=== PATIENT | female | born 1955 | race Caucasian/White ===

== ENCOUNTER → 2020-05-05 | Outpatient (CLI) | payer BC ==
--- NOTE | 2020-05-05 17:21 | CARDNUC ---
[place] [address] CARDIAC NUCLEAR IMAGING REPORT Name: DANNA KAPADIA Room: [facility]#: [id number] Admission: 05/05/20 Attend Phys: Cade Salcedo, Discharge: Date of : 59 Date of Service: 05/05/20 1721 Report #: [id number] THIS REPORT FOR: cc: Arpan Kramer Brad DO Liston, Michael J. MD [facility] ~ APPROVED REPORT Study performed: 05/05/2020 14:27:21 Exam: Nuclear Stress Test Indication: Abnormal EKG Patient Location: Out-Patient Stress Tech: Lizbeth Hood Stress Nurse: Vira Trujillo RN Ht: 5 ft 11 in Wt: 172 lbs BSA: 1.98 m2 BMI: 23.98 Medical History Medical History: CAD s/p [place], HTN, Hyperlipidemia Medications: lisinopril, amlodipine, atenolol, clonidine, atorvastatin Allergies: No known drug allergies Cardiac Risk Factors: Age, Current Smoker, HTN, Hyperlipidemia Exercise History: Physically active Meds Held (24 hrs): atenolol Stress Test Details Stress Test: Pharmacologic stress testing performed using 0.4 mg of regadenoson per 5 mL given IV over 10 seconds. Reason for pharmacologic stress test: st depression. HR Resting HR: 74 bpm Max Heart Rate (APMHR): 158 bpm Max HR Achieved: 103 bpm Target HR (85% APMHR): 134 bpm % of APMHR: 65 Recovery HR: 90 bpm BP Resting BP: 118/90 mmHg Max BP: 153/[address] [address] CARDIAC NUCLEAR IMAGING REPORT Name: DANNA KAPADIA Room: [facility]#: [id number] Admission: 05/05/20 Attend Phys: Cade Salcedo, Discharge: Date of : 59 Date of Service: 05/05/20 1721 Report #: [id number] Resting ECG: Sinus Rhythm, LVH with repolarization changes Stress ECG: Sinus Rhythm, LVH with repolarization changes ST Change: None Arrhythmia: None Recovery ECG: Sinus Rhythm, LVH with repolarization changes Recovery ST Change: None Recovery Arrhythmia: None Clinical Reason for Termination: Completed protocol The patient tolerated Lexiscan infusion without significant cardiac symptoms. Nurse Comments pt had sinificant st depression in inferior leads and lateral leads. dr Tomlinson consulted and he visited the patient. ok to do test as lexiscan Stress ECG Conclusion The baseline twelve-lead EKG shows sinus rhythm. There is left ventricular hypertrophy with repolarization abnormalities noted. EKGs obtained during and post Lexiscan infusion showed sinus rhythm with continued hypertrophy and repolarization abnormalities noted. No significant changes were noted. There were no stress-induced arrhythmias. NM EXAM: Myocardial Perfusion REST/STRESS Resting Data Rest SPECT myocardial perfusion imaging was performed in supine position 30 minutes following the intravenous injection of 10.3 mCi of Tc-99m Sestamibi. Time of rest injection: 12:50 The images were gated to evaluate regional wall motion and calculate left ventricular ejection fraction. Administration Route: IV Administration Site: Right Arm Pharmacologic Stress Pharmacologic stress test was performed by injecting Regadenoson 0.4 mg IV push followed by the intravenous injection of 32.6 mCi of Tc-99m [place] [address] CARDIAC NUCLEAR IMAGING REPORT Name: DANNA KAPADIA Room: [facility]#: [id number] Admission: 05/05/20 Attend Phys: PremSarah Salcedo, Discharge: Date of : 59 Date of Service: 05/05/20 1721 Report #: [id number] Time of stress injection: 14:25 Administration Route: IV Administration Site: Right Arm Heart Rate at time of stress injection: 103 bpm. Gated Stress SPECT was performed 45 minutes after stress injection. The images were gated to evaluate regional wall motion and calculate left ventricular ejection fraction. Prone imaging was performed. Study Quality Study: Good Artifact: Mild Soft tissue attenuation artifact Perfusion Perfusion images obtained at rest and post Lexiscan stress in the supine position show mild photopenia in the inferoapical wall that resolves for the most part with post-rest prone imaging. No other significant fixed or reversible defects are identified. Wall Motion Normal left ventricular wall motion. Nuclear Conclusion ECG Findings: non-diagnostic Clinical Findings: negative for ischemia Nuclear Findings: negative for ischemia Exercise Capacity: not assessed Left Ventricular Function: normal Risk Study: low Perfusion study show no defect that suggests infarct or ischemia. Left ventricular systolic function appears normal on gated studies. This is a low risk study. <Conclusion> The baseline twelve-lead EKG shows sinus rhythm. There is left ventricular hypertrophy with repolarization abnormalities noted. EKGs obtained during and post Lexiscan infusion showed sinus rhythm with continued hypertrophy and repolarization abnormalities noted. No significant changes were noted. There were no stress-induced arrhythmias. <ELECTRONICALLY SIGNED> By: Jorge Burgos MD, FACC 05/05/201720 20 20 Jorge Burgos MD, FACC /INF
== END ==
LOC: M.NUC 12:28 → M.CRD 13:00 → M.NUC 13:00
PROVIDERS: ATTEND Internal Medicine
DX: R94.31 Abnormal electrocardiogram [ECG] [EKG] (principal); I10 Essential (primary) hypertension; E78.2 Mixed hyperlipidemia; F17.200 Nicotine dependence, unspecified, uncomplicated; Z82.49 Family history of ischemic heart disease and other diseases of the circulatory system

== ENCOUNTER → 2020-06-09 | Outpatient (CLI) | payer BC | LOC: M.LAB 05-18 07:38 | PROVIDERS: ATTEND Internal Medicine | DX: Z01.812 Encounter for preprocedural laboratory examination (principal); I65.22 Occlusion and stenosis of left carotid artery; M50.322 Other cervical disc degeneration at C5-C6 level; J43.2 Centrilobular emphysema ==